=== PATIENT | male | born 1955 | race Caucasian/White ===

== ENCOUNTER 2017-03-03 18:55 | Emergency (ER) | payer OTHER ==
--- NOTE | 2017-03-03 19:23 | UC ---
Lower Extremity/Ankle HPI - HPI Summary HPI Summary: 61 YEAR OLD MALE WITH DIABETES PRESENTS WITH COMPLAINS OF ACUTE SEVERE BILATERAL LOWER EXTREMITY EDEMA. I WILL SEND HIM TO THE ER TO ASSESS KIDNEY FUNCTION. - History of Current Complaint Chief Complaint: UCLowerExtremity Stated Complaint: SWOLLEN FEET Time Seen by Provider: 03/03/17 19:20 Hx Obtained From: Patient Onset/Duration: Sudden Onset Severity Initially: Moderate Severity Currently: Moderate Pain Scale Used: 0-10 Numeric - 6 - Allergies/Home Medications Allergies/Adverse Reactions: Allergies Allergy/AdvReac Type Severity Reaction Status Date / Time Methotrexate Allergy Hives Verified 03/03/17 19:08 Home Medications: Home Medications amLODIPine TAB* [Norvasc 5 mg TAB*] 1 tab DAILY 03/03/17 [History Confirmed ] PMH/Surg Hx/FS Hx/Imm Hx Previously Healthy: Yes - Surgical History Surgical History: Yes Surgery Procedure, Year, and Place: neck surgery - Family History Known Family History: Positive: None - Social History Alcohol Use: None Substance Use Type: None Smoking Status (MU): Current Every Day Smoker Type: Cigarettes Amount Used/How Often: 1 ppd - Immunization History Most Recent Influenza Vaccination: 2017 Review of Systems Constitutional: Negative Skin: Negative Eyes: Negative ENT: Negative Respiratory: Negative Cardiovascular: Negative Gastrointestinal: Negative Genitourinary: Negative Motor: Negative Neurovascular: Negative Musculoskeletal: Other: - LOWER EXTREMITY EDEMA Neurological: Negative Psychological: Negative All Other Systems Reviewed And Are Negative: Yes Physical Exam Triage Information Reviewed: Yes Vital Signs: Initial Vital Signs Temp 36.5 C 03/03/17 19:08 Pulse 82 03/03/17 19:08 Resp 16 03/03/17 19:08 BP 152/61 03/03/17 19:08 Pulse Ox 100 03/03/17 19:08 Vital Signs Reviewed: Yes Eye Exam: Normal ENT Exam: Normal Dental Exam: Normal Neck exam: Normal Neck: Positive: 1 Respiratory Exam: Normal Cardiovascular Exam: Normal Abdominal Exam: Normal Musculoskeletal: Positive: Other: - BILATERAL LOWER EXTREMITY EDEMA Neurological Exam: Normal Psychological Exam: Normal Skin Exam: Normal Lower Extremity Course/Dx - Differential Dx/Diagnosis Provider Diagnoses: BILATERAL LOWER EXTREMITY EDEMA Discharge - Discharge Plan Condition: Stable Disposition: [facility] Referrals: Non Staff,Doctor [Primary Care Provider] - Additional Instructions: patient suggested to got o the er for acute bilateral leg edema.
== END 2017-03-03 20:00 | disposition short-term general hospital (02) ==
LOC: UCCORT 18:55
DX: R60.0 Localized edema (principal); E11.9 Type 2 diabetes mellitus without complications; F17.210 Nicotine dependence, cigarettes, uncomplicated
CPT/HCPCS: 93005; 99203; G0463